=== PATIENT | male | born 1940 | race Caucasian/White ===

== ENCOUNTER 2020-02-19 13:40 | Emergency (ER) | payer MEDICARE ==
[~2020-02-19] VITALS: Ht 180.3 cm; Wt 63.9 kg
[2020-02-19] MEDS ORDERED: LATANOPROST 0.2.5 ML OPHTHALMIC (13:53)
[2020-02-19] MEDS ORDERED: ALPHAGAN P5 ML OPHTHALMIC (13:53)
[2020-02-19] MEDS ORDERED: CELEXA 10 MG TA10 M1 PO (13:54)
[2020-02-19] MEDS ORDERED: PROTONIX40 M2 PO (13:54)
[2020-02-19] MEDS ORDERED: DONEPEZIL HCL 55 M1 PO (13:54)
[2020-02-19] MEDS ORDERED: NEURONTIN100 MG PO (13:54)
[2020-02-19] MEDS ORDERED: DERMACINRX5000 UNIT PO (13:55)
[2020-02-19] MEDS ORDERED: IRON18 M1 PO (13:55)
[2020-02-19 15:15] VITALS: BP 140/59
== END 2020-02-19 15:17 | disposition home or self-care (01) ==
LOC: M.ERS 13:40
DX: M54.2 Cervicalgia (principal); K21.9 Gastro-esophageal reflux disease without esophagitis; F03.90 Unspecified dementia, unspecified severity, without behavioral disturbance, psychotic disturbance, mood disturbance, and anxiety; Z95.0 Presence of cardiac pacemaker; Z88.6 Allergy status to analgesic agent; W18.39XA Other fall on same level, initial encounter; Y93.89 Activity, other specified; Y92.89 Other specified places as the place of occurrence of the external cause; Y99.8 Other external cause status